=== PATIENT | male | born 1965 | race Caucasian/White ===

== ENCOUNTER 2024-02-24 12:28 | Outpatient (CLI) | payer OTHER, SELFPAY ==
--- NOTE | ~2024-02-24 | CT_ITS ---
EXAMINATION: CT abdomen pelvis wo con DATE: 02/24/2024 15:07 INDICATION: syncope, fall, parietal pain, upper cervical pain, RUQ pain TECHNIQUE: Computed tomography (CT) of the abdomen and pelvis was performed without intravenous contr ast. Automated exposure control and iterative reconstruction technique were employed. The dose-length product was 2816.22 mGy-cm. COMPARISON: None. FINDINGS: Lower thorax: Unremarkable Liver: Normal. Biliary/Gallbladder: Distended gallbladder, no inflammatory change. No bile duct dilation. Pancreas: Fatty infiltration. Spleen: Normal. Adrenals:No mass. Kidneys: No suspicious mass, obstructing stone, or hydronephrosis. Multiple simple left renal cysts, measuring up to 4.3 cm GI tract: Small hiatal hernia. No small or large bowel dilation. Normal appendix. Diverticulosis with out diverticulitis. Mesentery/Peritoneum: No ascites, mass, or free air. Retroperitoneum: No mass. Atherosclerotic abdominal aortic and/or arterial calcifications. Pelvis: Pelvic organs are within normal limits. Soft Tissues: Soft tissues and body wall unremarkable. Bones: No acute osseous finding. IMPRESSION: Gallbladder hydrops, as may occur with obstruction or fasting. Correlate with biliary labs. No acute abdominopelvic process detected. Reviewed, dictated and finalized at location K. IMPRESSION: Gallbladder hydrops, as may occur with obstruction or fasting. Correlate with b iliary labs. No acute abdominopelvic process detected.
--- NOTE | ~2024-02-24 | CT_ITS ---
EXAMINATION: CT brain wo con DATE: 02/24/2024 15:06 INDICATION: Headache. Syncope. TECHNIQUE: Computed tomography (CT) of the head was performed without intravenous contrast. The mA wa s adjusted according to patient size. Iterative reconstruction technique was employed. The dose-lengt h product was 983.67 mGy-cm. COMPARISON: None FINDINGS: There is no intracranial hemorrhage, acute infarction, or abnormal intracranial mass lesion . The ventricles are normal in size. The paranasal sinuses are clear. There are likely changes of ocu lar lens replacement surgeries. The mastoid air cells are normal. IMPRESSION: 1. Normal brain. Reviewed, dictated and finalized at location A. IMPRESSION: 1. Normal brain.
--- NOTE | ~2024-02-24 | CT_ITS ---
EXAMINATION: CT cervical spine wo con DATE: 02/24/2024 15:07 INDICATION: syncope, fall, parietal pain, upper cervical pain TECHNIQUE: Computed tomography (CT) of the cervical spine was performed without intravenous contrast. Automated exposure control and iterative reconstruction technique were employed. The dose-length pro duct was 398.31 mGy-cm. COMPARISON: None. FINDINGS: Vertebral Body Alignment: Intact. Craniocervical and atlantoaxial alignment: Moderate degenerative change. Alignment intact. Osseous structures/fracture: No evidence of a lytic or blastic process in the visualized spine. No e vidence of acute fracture. Cervical soft tissues: The paraspinal soft tissues planes are maintained. Degenerative changes: Degenerative changes, without severe neural foraminal or central canal narrowin g. IMPRESSION: No acute fracture or traumatic malalignment in the cervical spine. Reviewed, dictated and finalized at location K.
== END 2024-02-24 12:29 | disposition home or self-care (01) ==
DX: R55 Syncope and collapse (principal); I10 Essential (primary) hypertension; R10.11 Right upper quadrant pain; M54.2 Cervicalgia; K82.4 Cholesterolosis of gallbladder
CPT/HCPCS: 70450; 72125; 74176